=== PATIENT | male | born 1995 | race Caucasian/White ===

== ENCOUNTER 2016-05-18 02:33 | Emergency (ER) | payer OTHER ==
[2016-05-18] MEDS ORDERED: FAMOTIDINE INJ/PF 20 MG/2 ML SDV IV ONE (03:52)
[2016-05-18] MEDS ORDERED: METHYLPREDNISOLONE INJ 125 MG/2 ML SDV IV ONE (03:52)
--- NOTE | 2016-05-18 03:54 | ER Document Report ---
ED General - General Chief Complaint: Allergic Reaction Stated Complaint: DIFFICULTY BREATHING Notes: Patient is a 21-year-old male presents with complaint of facial swelling. Patient says that he was anemic earstarted to swell. Slight itching so she with. No rash. Says his face continues to swell. He went [facility] and they told him is probably TMJ and gave him naproxen and Daniella. He's not had Benadryl. Some had steroids. He is not had Pepcid. His no difficulty swallowing. No wheezing. No stridor. No other complaints at this time. He's had no dental pain. No fevers or infections. TRAVEL OUTSIDE OF THE [place] IN LAST 30 DAYS: No - Related Data Allergies/Adverse Reactions: No Known Allergies Allergy (Unverified 05/18/16 02:45) Past Medical History - Social History Smoking Status: Never Smoker Chew tobacco use (# tins/day): No Frequency of alcohol use: Rare Drug Abuse: None Family History: Reviewed & Not Pertinent Patient has suicidal ideation: No Patient has homicidal ideation: No Renal/ Medical History: Denies: Hx Peritoneal Dialysis Review of Systems - Review of Systems Notes: My Normal Review Basic REVIEW OF SYSTEMS: CONSTITUTIONAL : Denies fever, chills, or sweats. Denies recent illness. EENT: Small amount of bilateral facial swelling. RESPIRATORY: Denies cough, cold, or chest congestion. Denies shortness of breath, difficulty breathing, or wheezing. GASTROINTESTINAL: Denies abdominal pain. Denies nausea, vomiting, or diarrhea. Denies constipation. Last BM: MUSCULOSKELETAL: Denies neck or back pain or joint pain or swelling. SKIN: Denies rash or skin lesions. NEUROLOGICAL: Denies altered mental status or loss of consciousness. Denies headache. Denies weakness or paralysis or loss of use of either side. Denies problems with gait or speech. Denies sensory or motor loss. ALL OTHER SYSTEMS REVIEWED AND NEGATIVE. Physical Exam - Vital signs Vitals: Temp Pulse Resp BP Pulse Ox 97.6 F 77 18 135/79 H 100 05/18/16 02:40 05/18/16 02:40 05/18/16 02:40 05/18/16 02:40 05/18/16 02:40 - Notes Notes: General Appearance: Well nourished, alert, cooperative, no acute distress, no obvious discomfort. Well-appearing. Vitals: reviewed, See vital signs table. Head: Slight swelling to rest of the face. Most of the face looks normal to me however the patient says that he typically has a very thin face and that the left side is actually swollen as well. Eyes: PERRL, EOMI, Conjuctiva clear Mouth: No decreasd moisture. Normal dentition. Throat: No tonsillar inflammation, No airway obstruction, No lymphadenopathy Neck: Supple, no neck tenderness, No thyromegaly Lungs: No wheezing, No rales, No rhonci, No accessory muscle use, good air exchange bilaterally. Heart: Normal rate, Regular rythm, No murmur, no rub Skin: warm, dry, appropriate color, no rash Neuro: speech clear, oriented x 3, normal affect, responds appropriately to questions. Course - Re-evaluation Re-evalutation: 05/18/16 05:55 On reevaluation patient saw some facial swelling. I will obtain a CT scan of the neck and face to better determine if there is any abscess or signs of infection versus just continued swelling. - Vital Signs Vital signs: Temp Pulse Resp BP Pulse Ox 97.6 F 77 18 135/79 H 100 05/18/16 02:40 05/18/16 02:40 05/18/16 02:40 05/18/16 02:40 05/18/16 02:40 - Laboratory Result Diagrams: 05/18/16 05:38 05/18/16 05:38 Laboratory results interpreted by me: 05/18/16 05:38 WBC 15.2 H Seg Neutrophils % 88.9 H Lymphocytes % 5.3 L Absolute Neutrophils 13.5 H - Transfer of Care Notes: 05/18/16 06:54 Patient's facial swelling does not appear to have increasing further. He continues not have any itching. This no other signs of allergic reaction. He had no response to Benadryl. I therefore did obtain a CT scan which did show the diffuse salivary gland swelling. I did talk to the radial some phone who said there is no evidence of impending airway comprise. Clinically the patient looks very well and has no signs of impending workup was on exam. He's had no recent fevers and or infectious prodrome symptoms like to expect with mumps. He also is vaccinations mumps. This makes mumps highly unlikely. I did speak with the ENT physician covering for [facility]. She recommends placing the patient tapering steroids and referring him to his primary care doctor for further workup of things such as Sjogren's syndrome. She does not recommend antibiotics at this time being that patient has no redness, no fevers, this had no other infectious symptoms. Nabil the plan to the patient. He is agreeable to it. I encouraged him to return to ER immediately if has difficulty breathing , difficulty swallowing, or feels unwell. Patient agrees with plan and will be discharged home. Dictation of this chart was performed using voice recognition software; therefore, there may be some unintended grammatical errors. Discharge - Discharge Clinical Impression: Facial swelling, Salivary gland swelling Condition: Good Disposition: HOME, SELF-CARE Additional Instructions: Your CT scan showed diffuse swelling of all major salivary glands including the parotid and submandibular glands. Your CT scan did not show any evidence of swelling or impending swelling near your airway. I did speak with Dr. Baker, the ear nose and throat doctor covering [facility], who requested I place him on tapering steroids and have you follow very closely with your primary care doctor in the next 2-3 days so that they can reevaluate you and start workup for autoimmune causes of your swelling such as Srojgen's syndrome. Please return to ER immediately if you have any fevers, difficulty breathing, difficulty swallowing her saliva, or feel that your swelling is getting much worse. [place] appointment as soon as possible. Prescriptions: Prednisone 10 mg PO ASDIR #42 tablet Forms: Return to Work
[2016-05-18 05:49] LABS: ABSOLUTE BASOPHILS # (AUTO) 0.1 10^3/uL (0.0-0.2); ABSOLUTE EOSINOPHILS # (AUTO) 0.3 10^3/uL (0.0-0.6); ABSOLUTE LYMPHOCYTES (AUTO) 0.8 10^3/uL (0.5-4.7); ABSOLUTE MONOCYTES (AUTO) 0.5 10^3/uL (0.1-1.4); ABSOLUTE NEUT (AUTO) 13.5 10^3/uL (1.7-8.2); BASOPHILS % (AUTO) 0.6 % (0-2); EOSINOPHILS % (AUTO) 1.7 % (0-6); HEMATOCRIT 43.6 % (37.9-51.0); HEMOGLOBIN 14.8 g/dL (13.5-17.0); HGB HCT DIFFERENCE 0.8; LYMPHOCYTES % (AUTO) 5.3 % (13-45); MEAN CORPUSCULAR HEMOGLOBIN 28.6 pg (27.0-33.4); MEAN CORPUSCULAR HGB CONC 33.9 g/dL (32.0-36.0); MEAN CORPUSCULAR VOLUME 84 fl (80-97); MONOCYTES % (AUTO) 3.5 % (3-13); RED BLOOD COUNT 5.18 10^6/uL (4.35-5.55); RED CELL DISTRIBUTION WIDTH 13.7 % (11.5-14.0); SEGMENTED NEUTROPHILS % (AUTO) 88.9 % (42-78); WHITE BLOOD COUNT 15.2 10^3/uL (4.0-10.5)
[2016-05-18 06:03] LABS: ANION GAP 12 (5-19); BLOOD UREA NITROGEN 11 mg/dL (7-20); CALCIUM 10.1 mg/dL (8.4-10.2); CARBON DIOXIDE 22 mmol/L (22-30); CHLORIDE 106 mmol/L (98-107); GLUCOSE 109 mg/dL (75-110); POTASSIUM 4.2 mmol/L (3.6-5.0); SODIUM 139.6 mmol/L (137-145)
[2016-05-18 07:07] VITALS: BP 119/63
== END 2016-05-18 07:06 | disposition home or self-care (01) ==
LOC: ER 02:33
DX: R59.0 Localized enlarged lymph nodes (principal); R22.0 Localized swelling, mass and lump, head; R06.00 Dyspnea, unspecified
CPT/HCPCS: 99284; 96374; 96375; 36415; 85025; 80048; 70491; J2930; S0028